=== PATIENT | male | born 1965 | race Caucasian/White ===

== ENCOUNTER 2020-08-10 06:35 | Emergency (ER) | payer BC ==
[~2020-08-10] VITALS: Ht 177.8 cm; Wt 78.9 kg
[~2020-08-10 06:35] MED LIST: AMOCLA875 PO; DOCU100 PO; FAMO20 PO; HYDHOMSY; MIRALAX17 GM PO; ONDA4ODT MM; Percocet 5-3251 EACH PO; Zofran Odt4 MG SL
[2020-08-10] MEDS ORDERED: Metoclopramide10 MG PO (06:50)
[2020-08-10] MEDS ORDERED: XARELTO20 M1 PO (06:50)
== END 2020-08-10 09:05 | disposition home or self-care (01) ==
LOC: ER 06:35
DX: R04.0 Epistaxis (principal); Z86.718 Personal history of other venous thrombosis and embolism; Z79.01 Long term (current) use of anticoagulants; Z79.899 Other long term (current) drug therapy
CPT/HCPCS: 99283

== ENCOUNTER 2021-01-06 03:44 | Emergency (ER) | payer BC ==
[~2021-01-06] VITALS: Ht 177.8 cm; Wt 74.8 kg
[~2021-01-06 03:44] MED LIST changes: +Metoclopramide10 MG PO; +XARELTO20 M1 PO
[2021-01-06 04:19] LABS: BASOPHILS ABSOLUTE AUTO 0.04 K/mm3 (0.00-0.23); BASOPHILS PERCENT AUTO 0 % (0-2); EOSINOPHILS ABSOLUTE AUTO 0.05 K/mm3 (0.00-0.68); EOSINOPHILS PERCENT AUTO 0 % (0-6); Hematocrit 31.8 % (37.0-53.0); Hemoglobin 9.1 g/dL (13.5-17.5); IMMATURE GRAN ABSOLUTE AUTO 0.25 K/mm3 (0.00-0.10); IMMATURE GRAN PERCENT AUTO 1 % (0-1); LYMPHOCYTES ABSOLUTE AUTO 2.15 K/mm3 (0.84-5.20); LYMPHOCYTES PERCENT AUTO 10 % (21-46); MONOCYTES ABSOLUTE AUTO 2.18 K/mm3 (0.16-1.47); MONOCYTES PERCENT AUTO 10 % (4-13); Mean Corpuscular HGB 24.3 pg (26.0-34.0); Mean Corpuscular HGB Conc 28.6 g/dL (31.5-36.5); Mean Corpuscular Volume 85 fL (80-100); Mean Platelet Volume 9.8 fL (9.1-12.4); NEUTROPHILS ABSOLUTE AUTO 17.75 K/mm3 (1.96-9.15); NEUTROPHILS PERCENT AUTO 79 % (41-73); Platelet Count 474 K/mm3 (150-400); RDW Coefficient Variation 18.2 % (11.7-14.2); RDW Standard Deviation 55.8 fL (35.1-46.3); Red Blood Cell Count 3.75 M/mm3 (4.30-5.90); White Blood Cell Count 22.42 K/mm3 (4.00-11.30)
[2021-01-06] MEDS ORDERED: Deltasone 10 mg10 MG PO (04:20)
[2021-01-06] MEDS ORDERED: DULCOLAX STOOL100 M2 PO (04:22)
[2021-01-06] MEDS ORDERED: OMEP20ER PO (04:22)
[2021-01-06 04:48] LABS: Alanine Aminotransfer (ALT/SGP 28 U/L (12-78); Albumin, Blood 2.6 g/dL (3.4-5.0); Albumin/Globulin Ratio 0.5 (0.8-1.8); Alk Phos 163 U/L (50-136); Anion Gap 8 mmol/L (6-16); Aspartate Aminotrans (AST/SGOT 49 U/L (12-37); Bilirubin, Total 0.4 mg/dL (0.1-1.0); Blood Urea Nitrogen 10 mg/dL (8-24); Bun/Creatinine Ratio 12.5 (12.0-20.0); CO2, Blood 29 mmol/L (21-32); Calcium, Blood 9.3 mg/dL (8.5-10.1); Chloride, Blood 100 mmol/L (98-108); Glomerular Filtration Rate >60 (60-); Glucose, Blood 117 mg/dL (70-99); Potassium, Blood 3.5 mmol/L (3.5-5.5); Sodium, Blood 137 mmol/L (136-145); Total Protein, Blood 7.6 g/dL (6.4-8.2)
[2021-01-06] MEDS ORDERED: MAGCIT300 PO (04:58)
[2021-06-12] MEDS ORDERED: MIRALAX17 GM PO (10:56)
[2021-06-12] MEDS ORDERED: SIME80CH PO (10:56)
[2021-06-12] MEDS ORDERED: DOCU100 PO (10:57)
[2021-06-13] MEDS ORDERED: GAS X (07:49)
[2021-06-13] MEDS ORDERED: OMEP20ER PO (07:50)
[2021-06-18] MEDS ORDERED: OXAYDO5 M1 PO (13:42)
== END 2021-01-06 05:07 | disposition home or self-care (01) ==
LOC: ER 03:44
PROVIDERS: Emergency Medicine
DX: K59.00 Constipation, unspecified (principal); Z79.01 Long term (current) use of anticoagulants; Z79.52 Long term (current) use of systemic steroids; Z79.899 Other long term (current) drug therapy
CPT/HCPCS: 36415; 74018; 80053; 83690; 85025; 96361; 96374; 96375; 99284-25; J1170; J2405; J7120

== ENCOUNTER 2021-02-01 13:36 | Inpatient (IN) | payer BC ==
[~2021-02-01] VITALS: Ht 177.8 cm; Wt 74.1 kg
[~2021-02-01 13:36] MED LIST changes: -ALPR.5 PO; -BENADRYL25 MG PO; -BISA10S; -GAS X; -OXAYDO5 M1 PO; -Oxycodone HCl20 M1; -SIME80CH PO
[2021-02-01 14:34] LABS: Mean Corpuscular HGB 25.3 pg (26.0-34.0); Mean Corpuscular HGB Conc 27.4 g/dL (31.5-36.5); Mean Corpuscular Volume 92 fL (80-100); Mean Platelet Volume 9.8 fL (9.1-12.4); NRBC ABSOLUTE 0.06 K/mm3 (0.00-0.02); NRBC Auto 0.5 /100 WBC (0.0-0.2); Platelet Count 374 K/mm3 (150-400); RDW Coefficient Variation 25.4 % (11.7-14.2); RDW Standard Deviation 74.4 fL (35.1-46.3); White Blood Cell Count 13.29 K/mm3 (4.00-11.30)
[2021-02-01 14:36] LABS: Hematocrit 17.5 % (37.0-53.0); Hemoglobin 4.8 g/dL (13.5-17.5)
[2021-02-01 14:54] LABS: Alanine Aminotransfer (ALT/SGP 17 U/L (12-78); Albumin, Blood 2.6 g/dL (3.4-5.0); Albumin/Globulin Ratio 0.6 (0.8-1.8); Alk Phos 124 U/L (50-136); Anion Gap 6 mmol/L (6-16); Aspartate Aminotrans (AST/SGOT 42 U/L (12-37); Bilirubin, Total 0.2 mg/dL (0.1-1.0); Blood Urea Nitrogen 13 mg/dL (8-24); Bun/Creatinine Ratio 14.1 (12.0-20.0); CO2, Blood 28 mmol/L (21-32); Calcium, Blood 8.4 mg/dL (8.5-10.1); Chloride, Blood 104 mmol/L (98-108); Creatinine, Blood 0.92 mg/dL (0.60-1.20); Globulin, Blood 4.1 g/dL (2.2-4.0); Glomerular Filtration Rate >60 (60-); Glucose, Blood 99 mg/dL (70-99); Potassium, Blood 4.3 mmol/L (3.5-5.5); Sodium, Blood 138 mmol/L (136-145); Total Protein, Blood 6.7 g/dL (6.4-8.2)
[2021-02-01 15:09] LABS: BAND PERCENT MAN 1 % (0-8); BASOPHILS ABSOLUTE MAN 0.13 K/mm3 (0.00-0.23); BASOPHILS PERCENT MAN 1 % (0-2); EOSINOPHILS PERCENT MAN 0 % (0-6); LYMPHOCYTES ABSOLUTE MAN 1.19 K/mm3 (0.84-5.20); LYMPHOCYTES PERCENT MAN 9 % (21-46); MONOCYTES ABSOLUTE MAN 0.66 K/mm3 (0.16-1.47); MONOCYTES PERCENT MAN 5 % (4-13); MYELOCYTE ABSOLUTE MAN 0.26 K/mm3 (0.00-0.00); MYELOCYTE PERCENT MAN 2 % (0-0); NEUTROPHILS ABSOLUTE MAN 11.03 K/mm3 (1.96-9.15); SEG NEUTROPHILS PERCENT MAN 82 % (41-73); TOTAL CELLS COUNTED 100
[2021-02-01 16:06] LABS: International Normalized Ratio 1.12; Prothrombin Time Results 11.9 Sec (9.7-11.5)
--- NOTE | 2021-02-01 18:45 | NUR ---
Arrival to unit Received report from [facility]ert ED-RN. Patient arrived approximately 1845 via gurney with 2nd PRBC infusing @ 150 mLs/hr. Transferred self over to bed. at bedside. Settled to room, call light in reach. Report handed to nanda Wesley.
[2021-02-01 23:59] LABS: Hematocrit 23.5 % (37.0-53.0); Hemoglobin 7.4 g/dL (13.5-17.5)
--- NOTE | 2021-02-02 04:42 | NUR ---
SHIFT SUMMARY ASSUMED CARE OF PT AT 1900. PT IS A/OX4. HEART SOUNDS REGULAR, LUNG SOUNDS CLEAR. PT C/O PAIN IN ABD RADIATING TO BACK, MEDICATED PER EMAR. PT IS NPO AT MIDNIGHT FOR SCOPE IN AFTERNOON. PT RECEIVED 3 UNITS OF BLOOD TOTAL, HGB IS MORE STABLE. PT STATES HE IS FEELING BETTER. PT WAS VERY TIRED AND SLEPT T/O THE NIGHT. CALL LIGHT IN REACH, BED IN LOWEST POSTION.
[2021-02-02 05:01] LABS: BASOPHILS ABSOLUTE AUTO 0.08 K/mm3 (0.00-0.23); BASOPHILS PERCENT AUTO 1 % (0-2); EOSINOPHILS ABSOLUTE AUTO 0.18 K/mm3 (0.00-0.68); EOSINOPHILS PERCENT AUTO 1 % (0-6); Hematocrit 24.3 % (37.0-53.0); Hemoglobin 7.6 g/dL (13.5-17.5); IMMATURE GRAN ABSOLUTE AUTO 0.63 K/mm3 (0.00-0.10); IMMATURE GRAN PERCENT AUTO 5 % (0-1); LYMPHOCYTES ABSOLUTE AUTO 1.91 K/mm3 (0.84-5.20); LYMPHOCYTES PERCENT AUTO 15 % (21-46); MONOCYTES ABSOLUTE AUTO 1.04 K/mm3 (0.16-1.47); MONOCYTES PERCENT AUTO 8 % (4-13); Mean Corpuscular HGB 27.4 pg (26.0-34.0); Mean Corpuscular HGB Conc 31.3 g/dL (31.5-36.5); Mean Corpuscular Volume 88 fL (80-100); Mean Platelet Volume 9.5 fL (9.1-12.4); NEUTROPHILS ABSOLUTE AUTO 8.93 K/mm3 (1.96-9.15); NEUTROPHILS PERCENT AUTO 70 % (41-73); NRBC ABSOLUTE 0.14 K/mm3 (0.00-0.02); NRBC Auto 1.1 /100 WBC (0.0-0.2); Platelet Count 355 K/mm3 (150-400); RDW Coefficient Variation 20.2 % (11.7-14.2); RDW Standard Deviation 55.4 fL (35.1-46.3); Red Blood Cell Count 2.77 M/mm3 (4.30-5.90); White Blood Cell Count 12.77 K/mm3 (4.00-11.30)
[2021-02-02 05:21] LABS: Anion Gap 5 mmol/L (6-16); Blood Urea Nitrogen 10 mg/dL (8-24); Bun/Creatinine Ratio 10.6 (12.0-20.0); CO2, Blood 29 mmol/L (21-32); Calcium, Blood 8.2 mg/dL (8.5-10.1); Chloride, Blood 106 mmol/L (98-108); Creatinine, Blood 0.94 mg/dL (0.60-1.20); Glomerular Filtration Rate >60 (60-); Glucose, Blood 84 mg/dL (70-99); Magnesium, Blood 2.2 mg/dL (1.6-2.4); Sodium, Blood 140 mmol/L (136-145)
--- NOTE | 2021-02-02 11:46 | NUR ---
MARÍA NEGRON RECEIVED T.O. FROM DR. ALEXANDER FOR IV ZOFRAN D/T NAUSEA R/T MINH. ORDER UPDATED.
[2021-02-02 11:57] LABS: Influenza A, PCR NEGATIVE (NEGATIVE); Influenza B, PCR NEGATIVE (NEGATIVE); Resp Syncytial Virus, PCR NEGATIVE (NEGATIVE); SARS-Cov-2 (COVID-19) PCR, MMC NEGATIVE (NEGATIVE)
--- NOTE | 2021-02-02 13:29 | NUR ---
2ND BOWEL PREP PATIENT HAD RECENT BOWEL MOVEMENT, WATERY BUT NOT COMPLETELY CLEAR (UNABLE TO SEE THROUGH TO THE BOTTOM OF TOILET). UPDATE CONVEYED TO DR. REYES. RECEIVED T.O. TO START SECOND GOLYTELY UNTIL BOWELS ARE CLEAR. WILL UPDATE EMAR.
--- NOTE | 2021-02-02 17:02 | NUR ---
Patient up to Ambulate independently. Gait steady. Patient states colon prep results clear. History, Chart, Medications and Allergies reviewed before start of procedure.Lungs clear T/O to Auscultation. Patient confirms NPO status and agrees with scheduled surgery. AT BEDSIDE.
[2021-02-02 17:10] LABS: Hematocrit 26.2 % (37.0-53.0)
--- NOTE | 2021-02-02 17:17 | NUR ---
Shift Summary A/Ox4, independent in room. Able to make needs known. Medicated per EMAR for pain x 2 with good effect. Finished approximately 1.5 gallon of bowel prep with good results. Scheduled for EGD and colonoscopy for which patient is currently at. Placed protocol order for heparin flush/deaccess for mediport. D5 1/ NS @ 125 continuous. Hgb @ 8 s/p 3 units PRBC transfused. Patient reports [facility] Also reports he was scheduled to receive a total of 10 iron infusions (Mondays and ) with 02/01/21 being the 4th dose completed. Breathing equal and unlabored. VSS. Denies dizziness, shortness of breath. Stools today had no visible blood. at bedside during visiting hours. No acute concerns, WCTM.
--- NOTE | 2021-02-02 17:38 | NUR ---
02/02/21 1738 Ovidio Bustamante PATIENT DETERMINED TO BE ASA APPROPRIATE FOR PROPOFOL SEDATION PRIOR TO START OF PROCEDURE BY DR. REYES. Bite Block Placed 3-LEAD EKG REVIEWED WITH PHYSICIAN PRIOR TO START OF PROCEDURE. Patient to ENDO 1 History, Chart, Medications and Allergies reviewed before start of procedure.MONITOR INTACT WITH CONTINUOUS PULSE OXIMETRY AND INTERMITTENT BP.O2 VIA N/C INTACT THROUGHOUT SEDATION/PROCEDURE.
--- NOTE | 2021-02-02 18:24 | NUR ---
ADMIT: 02/02/21 DISCHARGE: DX: Rectal BleedingCC: ADMIT: 07/04/20 DISCHARGE: DX: ABD PAIN CC LUCILA CALL: RESIDENCE: Home with spouse CAREGIVER: Yari Ny, Spouse / Partner, DX: abdominal pain, liver mass, anemia, see list DME: none CCM: none HOME HEALTH: none SUMMARY: Admit 02/01/21 02/02/21 Colonoscopy planned for today. Discharge to reflect results of scope. Left lucila letter in box for possible weekend discharge. cp 1: Anemia A/P: Hemoglobin noted to be 4.6-4.7 Etiology likely secondary to lower GI bleed in the setting of chemotherapy/immunotherapy-induced anemia We will begin transfusion with 3 units of packed red blood cells, recheck H&H afterwards Plan to check CBC in the morning and potentially trended H&H every 8 hours We will plan to transfuse to keep him globin greater than 7 2: Lower GI bleed A/P: Unknown etiology, differentials include hemorrhoids, angiodysplasias, malignancy in the setting of Xarelto use GI consult, will benefit from colonoscopy
--- NOTE | 2021-02-02 19:25 | NUR ---
ASSUMED CARE RECEIVED REPORT FROM GALLITO HO. PT RESTING COMFORTABLY, IN NO ACUTE DISTRESS. RESPS E/U. DENIES NEEDS AT THIS TIME. CALL LIGHT AND POSSESSIONS IN REACH, IVF ONGOING. CONTINUE TO MONITOR.
[2021-02-03 01:21] LABS: Hematocrit 23.5 % (37.0-53.0); Hemoglobin 7.3 g/dL (13.5-17.5)
--- NOTE | 2021-02-03 02:14 | NUR ---
SPOKE TO DR. MENESES REGARDING PT'S H&H OF 7.3/23.5. NO NEW ORDERS RECEIVED AT THIS TIME. CONTINUE TO MONITOR.
--- NOTE | 2021-02-03 07:16 | NUR ---
PLASTER WHITTLER SUMMARY PT RESTING COMFORTABLY, IN NO ACUTE DISTRESS. VS REVIEWED, WNL. NO ACUTE CHANGES IN CONDITION THROUGHOUT NIGHT, SLEPT ON AND OFF. PAIN MANAGED EFFECTIVELY WITH MEDS PER EMAR. NO REPORTS OF BLOODY STOOLS T/O NIGHT. DENIES NEEDS AT THIS TIME. CALL LIGHT AND POSSESSIONS IN REACH, BED IN LOW POSITION. REPORT GIVEN TO GALLITO TRAMMELL.
[2021-02-03 08:16] LABS: Hematocrit 25.4 % (37.0-53.0); Hemoglobin 7.7 g/dL (13.5-17.5)
--- NOTE | 2021-02-03 13:09 | NUR ---
DISCHARGE SUMMARY: PATIENT DENIED NEED FOR PAIN MEDICATION THROUGHOUT SHIFT. PATIENT DENIED ANY BLOOD IN STOOLS. PATIENT DENIED DIZZINESS OR FATIGUE. PATIENT DENIED ANY OF THE SYMPTOMS THAT BROUGHT HIM INTO THE HOSPITAL. PATIENT RESTING CALMLY IN THE BED. BREATHING IS EVEN AND REGULAR. PATIENT DENIES NAUSEA. PATIENT DOES REPORT SOME FEELINGS OF "BLOAT". DENIES NEED FOR INTERVENTION. PATIENT INDEPENDENT IN THE ROOM AND STEADY ON HIS FEET. ORDER FOR THE PATIENT TO DISCHARGE. NO NEW MEDICATIONS FOR DISCHARGE. PATIENT DENIES NEED FOR REFILLS. PATIENT REPORTS THAT HE WILL FOLLOW-UP WITH [facility] FOR FOLLOW-UP LAB DRAWS. DISCHARGE EDUCATION AND INSTRUCTIONS PROVIDED. ALL QUESTIONS AND CONCERNS ADDRESSED. PATIENT DISCHARGED IN WHEELCHAIR WITH ASSISTANT PRODUCTION MANAGERGALLITO FREEDMAN.
--- NOTE | 2021-02-05 18:04 | NUR ---
ADMIT: 02/02/21 DISCHARGE:02/03/21 DX: Rectal BleedingCC: ADMIT: 07/04/20 DISCHARGE: DX: ABD PAIN CC LUCILA CALL: Did not meet prior to disharge. RESIDENCE: Home with spouse CAREGIVER: Yari Ny, Spouse / Partner, DX: abdominal pain, liver mass, anemia, see list DME: none CCM: none HOME HEALTH: none SUMMARY: Admit 02/01/21 02/03/21 Discharge home. No instructions on discharge summary. Did not meet patient prior to discharge. cp 02/02/21 Colonoscopy planned for today. Discharge to reflect results of scope. Left lucila letter in box for possible weekend discharge. cp 1: Anemia
[2021-06-12] MEDS ORDERED: MIRALAX17 GM PO (10:56)
[2021-06-12] MEDS ORDERED: SIME80CH PO (10:56)
[2021-06-12] MEDS ORDERED: DOCU100 PO (10:57)
[2021-06-13] MEDS ORDERED: GAS X (07:49)
[2021-06-13] MEDS ORDERED: OMEP20ER PO (07:50)
[2021-06-18] MEDS ORDERED: OXAYDO5 M1 PO (13:42)
== END 2021-02-03 13:07 | disposition home or self-care (01) | DRG 375 ==
LOC: ER 13:36 → MEDS 16:47 → ER 16:47 → MEDS 18:46
PROVIDERS: Internal Medicine Gastroenterology; Physician Assistant; ADMIT Internal Medicine
PROC: 30233N1 Transfusion of Nonautologous Red Blood Cells into Peripheral Vein, Percutaneous Approach (ICD-10-PCS; 2021-02-02)
PROC: 0DJ08ZZ Inspection of Upper Intestinal Tract, Via Natural or Artificial Opening Endoscopic (ICD-10-PCS; principal; 2021-02-03)
PROC: 0DJD8ZZ Inspection of Lower Intestinal Tract, Via Natural or Artificial Opening Endoscopic (ICD-10-PCS; 2021-02-03)
DX: C18.5 Malignant neoplasm of splenic flexure (principal); D68.32 Hemorrhagic disorder due to extrinsic circulating anticoagulants; K92.2 Gastrointestinal hemorrhage, unspecified; C78.6 Secondary malignant neoplasm of retroperitoneum and peritoneum; C78.7 Secondary malignant neoplasm of liver and intrahepatic bile duct; D64.81 Anemia due to antineoplastic chemotherapy; K21.9 Gastro-esophageal reflux disease without esophagitis; Z86.718 Personal history of other venous thrombosis and embolism; T45.1X5A Adverse effect of antineoplastic and immunosuppressive drugs, initial encounter; D50.9 Iron deficiency anemia, unspecified; Z79.899 Other long term (current) drug therapy; Z98.890 Other specified postprocedural states; Z20.822 Contact with and (suspected) exposure to COVID-19
CPT/HCPCS: 0241U; 36415; 36430; 80048; 80053; 83735; 85014; 85018; 85025; 85610; 85730; 86850; 86900; 86901; 86920; 86923; 93005; 93010; 99284-25; A9270; J1170; J1642; J2270; J2405; J2704; J7030; J7042; J7120; P9016

== ENCOUNTER → 2021-02-01 | Outpatient (CLI) | payer BC ==
[~2021-02-01] MED LIST changes: +ALPR.5 PO; +BENADRYL25 MG PO; +BISA10S; +DULCOLAX STOOL100 M2 PO; +Deltasone 10 mg10 MG PO; +GAS X; +MAGCIT300 PO; +OMEP20ER PO; +OXAYDO5 M1 PO; +Oxycodone HCl20 M1; +SIME80CH PO
[2021-02-01 13:03] LABS: Alanine Aminotransfer (ALT/SGP 17 U/L (12-78); Albumin, Blood 2.7 g/dL (3.4-5.0); Albumin/Globulin Ratio 0.8 (0.8-1.8); Alk Phos 120 U/L (50-136); Anion Gap 6 mmol/L (6-16); Aspartate Aminotrans (AST/SGOT 40 U/L (12-37); Bilirubin, Total 0.3 mg/dL (0.1-1.0); Blood Urea Nitrogen 14 mg/dL (8-24); Bun/Creatinine Ratio 14.7 (12.0-20.0); CO2, Blood 27 mmol/L (21-32); Calcium, Blood 8.4 mg/dL (8.5-10.1); Chloride, Blood 106 mmol/L (98-108); Creatinine, Blood 0.95 mg/dL (0.60-1.20); Globulin, Blood 3.6 g/dL (2.2-4.0); Glomerular Filtration Rate >60 (60-); Glucose, Blood 99 mg/dL (70-99); Sodium, Blood 139 mmol/L (136-145); Total Protein, Blood 6.3 g/dL (6.4-8.2)
[2021-02-01 13:08] LABS: BASOPHILS ABSOLUTE AUTO 0.07 K/mm3 (0.00-0.23); BASOPHILS PERCENT AUTO 1 % (0-2); EOSINOPHILS PERCENT AUTO 1 % (0-6); IMMATURE GRAN ABSOLUTE AUTO 0.61 K/mm3 (0.00-0.10); IMMATURE GRAN PERCENT AUTO 5 % (0-1); LYMPHOCYTES PERCENT AUTO 11 % (21-46); MONOCYTES ABSOLUTE AUTO 0.71 K/mm3 (0.16-1.47); MONOCYTES PERCENT AUTO 6 % (4-13); Mean Corpuscular HGB 25.7 pg (26.0-34.0); Mean Corpuscular HGB Conc 28.1 g/dL (31.5-36.5); Mean Corpuscular Volume 91 fL (80-100); Mean Platelet Volume 10.2 fL (9.1-12.4); NEUTROPHILS ABSOLUTE AUTO 9.94 K/mm3 (1.96-9.15); NEUTROPHILS PERCENT AUTO 78 % (41-73); NRBC ABSOLUTE 0.08 K/mm3 (0.00-0.02); NRBC Auto 0.6 /100 WBC (0.0-0.2); Platelet Count 366 K/mm3 (150-400); RDW Coefficient Variation 24.8 % (11.7-14.2); RDW Standard Deviation 71.3 fL (35.1-46.3); Red Blood Cell Count 1.83 M/mm3 (4.30-5.90); White Blood Cell Count 12.83 K/mm3 (4.00-11.30)
[2021-02-01 13:10] LABS: Hematocrit 16.7 % (37.0-53.0); Hemoglobin 4.7 g/dL (13.5-17.5)
== END | disposition home or self-care (01) ==
LOC: LAB 12:12 → LAB SHORT 12:12
PROVIDERS: Internal Medicine Hematology & Oncology
DX: C18.9 Malignant neoplasm of colon, unspecified (principal)
CPT/HCPCS: 80053; 85025

== ENCOUNTER 2021-05-08 02:32 | Day surgery (SDC) | payer BC ==
[2021-05-07 11:44] LABS: BASOPHILS ABSOLUTE AUTO 0.05 K/mm3 (0.00-0.23); BASOPHILS PERCENT AUTO 1 % (0-2); EOSINOPHILS ABSOLUTE AUTO 0.08 K/mm3 (0.00-0.68); EOSINOPHILS PERCENT AUTO 1 % (0-6); Hematocrit 18.2 % (37.0-53.0); IMMATURE GRAN ABSOLUTE AUTO 0.11 K/mm3 (0.00-0.10); IMMATURE GRAN PERCENT AUTO 2 % (0-1); LYMPHOCYTES ABSOLUTE AUTO 1.66 K/mm3 (0.84-5.20); LYMPHOCYTES PERCENT AUTO 25 % (21-46); MONOCYTES ABSOLUTE AUTO 0.58 K/mm3 (0.16-1.47); MONOCYTES PERCENT AUTO 9 % (4-13); Mean Corpuscular HGB 24.8 pg (26.0-34.0); Mean Corpuscular HGB Conc 28.6 g/dL (31.5-36.5); Mean Corpuscular Volume 87 fL (80-100); Mean Platelet Volume 10.5 fL (9.1-12.4); NEUTROPHILS ABSOLUTE AUTO 4.21 K/mm3 (1.96-9.15); NEUTROPHILS PERCENT AUTO 63 % (41-73); NRBC ABSOLUTE 0.02 K/mm3 (0.00-0.02); NRBC Auto 0.3 /100 WBC (0.0-0.2); Platelet Count 284 K/mm3 (150-400); RDW Coefficient Variation 18.7 % (11.7-14.2); RDW Standard Deviation 59.2 fL (35.1-46.3); White Blood Cell Count 6.69 K/mm3 (4.00-11.30)
[2021-05-07 11:52] LABS: Albumin/Globulin Ratio 0.9 (0.8-1.8); Bilirubin, Total 0.2 mg/dL (0.1-1.0); Bun/Creatinine Ratio 10.3 (12.0-20.0); Calcium, Blood 8.3 mg/dL (8.5-10.1); Creatinine, Blood 1.36 mg/dL (0.60-1.20); Globulin, Blood 3.4 g/dL (2.2-4.0); Hemoglobin 5.2 g/dL (13.5-17.5); Percent Saturation 4.4 % (20.0-50.0); Potassium, Blood 3.7 mmol/L (3.5-5.5); Total Protein, Blood 6.4 g/dL (6.4-8.2)
[2021-06-12] MEDS ORDERED: MIRALAX17 GM PO (10:56)
[2021-06-12] MEDS ORDERED: SIME80CH PO (10:56)
[2021-06-12] MEDS ORDERED: DOCU100 PO (10:57)
[2021-06-13] MEDS ORDERED: GAS X (07:49)
[2021-06-13] MEDS ORDERED: OMEP20ER PO (07:50)
[2021-06-18] MEDS ORDERED: OXAYDO5 M1 PO (13:42)
== END 2021-05-08 11:25 | disposition home or self-care (01) ==
LOC: ATC 02:32 → EDSTATUS 04-17 10:45 → LAB FUT 04-17 10:45
PROVIDERS: Internal Medicine Hematology & Oncology
DX: C18.5 Malignant neoplasm of splenic flexure (principal); C78.7 Secondary malignant neoplasm of liver and intrahepatic bile duct; K21.9 Gastro-esophageal reflux disease without esophagitis; Z86.718 Personal history of other venous thrombosis and embolism; Z79.01 Long term (current) use of anticoagulants; G62.9 Polyneuropathy, unspecified; Z87.440 Personal history of urinary (tract) infections; Z92.21 Personal history of antineoplastic chemotherapy
CPT/HCPCS: 36415; 36430; 80053; 82728; 83540; 83550; 85025; 86850; 86900; 86901; 86923; J1642; J7050; P9016

== ENCOUNTER 2021-05-15 08:33 | Day surgery (SDC) | payer BC ==
[~2021-05-15] VITALS: Ht 177.8 cm; Wt 83.4 kg
[2021-05-15] MEDS ORDERED: Oxycodone HCl20 M1 (08:50)
[2021-05-15] MEDS ORDERED: ALPR.5 PO (08:51)
[2021-05-15] MEDS ORDERED: BENADRYL25 MG PO (08:51)
[2021-05-15] MEDS ORDERED: BISA10S (08:51)
[2021-06-12] MEDS ORDERED: MIRALAX17 GM PO (10:56)
[2021-06-12] MEDS ORDERED: SIME80CH PO (10:56)
[2021-06-12] MEDS ORDERED: DOCU100 PO (10:57)
[2021-06-13] MEDS ORDERED: GAS X (07:49)
[2021-06-13] MEDS ORDERED: OMEP20ER PO (07:50)
[2021-06-18] MEDS ORDERED: OXAYDO5 M1 PO (13:42)
== END 2021-05-15 10:30 | disposition home or self-care (01) ==
LOC: ORSCSDS 08:33
PROVIDERS: Internal Medicine Gastroenterology
PROC: 0DJ08ZZ Inspection of Upper Intestinal Tract, Via Natural or Artificial Opening Endoscopic (ICD-10-PCS; principal; 2021-05-15 10:00)
DX: K92.1 Melena (principal); R53.83 Other fatigue; D50.9 Iron deficiency anemia, unspecified; Z85.038 Personal history of other malignant neoplasm of large intestine; Z79.01 Long term (current) use of anticoagulants; Z79.899 Other long term (current) drug therapy
CPT/HCPCS: J2704; J7120

== ENCOUNTER 2021-05-16 06:12 | Day surgery (SDC) | payer BC ==
[~2021-05-16] VITALS: Ht 177.8 cm; Wt 83.4 kg
[~2021-05-16 06:12] MED LIST changes: +ALPR.5 PO; +BENADRYL25 MG PO; +BISA10S; +Oxycodone HCl20 M1
--- NOTE | 2021-05-16 06:40 | NUR ---
05/16/21 0640 Crystal Smith 1 TRY RIGHT UPPER ARM MOVED
[2021-06-12] MEDS ORDERED: MIRALAX17 GM PO (10:56)
[2021-06-12] MEDS ORDERED: SIME80CH PO (10:56)
[2021-06-12] MEDS ORDERED: DOCU100 PO (10:57)
[2021-06-13] MEDS ORDERED: GAS X (07:49)
[2021-06-13] MEDS ORDERED: OMEP20ER PO (07:50)
[2021-06-18] MEDS ORDERED: OXAYDO5 M1 PO (13:42)
== END 2021-05-16 08:06 | disposition home or self-care (01) ==
LOC: ORSCSDS 06:12
PROVIDERS: Internal Medicine Gastroenterology
PROC: 0DJ08ZZ Inspection of Upper Intestinal Tract, Via Natural or Artificial Opening Endoscopic (ICD-10-PCS; principal; 2021-05-16 07:30)
DX: K92.1 Melena (principal); K92.2 Gastrointestinal hemorrhage, unspecified; D50.9 Iron deficiency anemia, unspecified; Z85.038 Personal history of other malignant neoplasm of large intestine
CPT/HCPCS: J0330; J0461; J2405; J2704; J7120

== ENCOUNTER 2021-05-18 09:28 | Day surgery (SDC) | payer BC ==
[2021-05-17 10:11] LABS: BASOPHILS ABSOLUTE AUTO 0.05 K/mm3 (0.00-0.23); BASOPHILS PERCENT AUTO 1 % (0-2); EOSINOPHILS ABSOLUTE AUTO 0.15 K/mm3 (0.00-0.68); EOSINOPHILS PERCENT AUTO 2 % (0-6); Hematocrit 21.4 % (37.0-53.0); IMMATURE GRAN ABSOLUTE AUTO 0.07 K/mm3 (0.00-0.10); IMMATURE GRAN PERCENT AUTO 1 % (0-1); LYMPHOCYTES ABSOLUTE AUTO 2.27 K/mm3 (0.84-5.20); LYMPHOCYTES PERCENT AUTO 30 % (21-46); MONOCYTES PERCENT AUTO 8 % (4-13); Mean Corpuscular HGB 24.9 pg (26.0-34.0); Mean Corpuscular Volume 89 fL (80-100); Mean Platelet Volume 10.1 fL (9.1-12.4); NEUTROPHILS ABSOLUTE AUTO 4.43 K/mm3 (1.96-9.15); NEUTROPHILS PERCENT AUTO 59 % (41-73); Platelet Count 388 K/mm3 (150-400); RDW Coefficient Variation 18.4 % (11.7-14.2); RDW Standard Deviation 59.1 fL (35.1-46.3); Red Blood Cell Count 2.41 M/mm3 (4.30-5.90); White Blood Cell Count 7.57 K/mm3 (4.00-11.30)
[2021-06-12] MEDS ORDERED: SIME80CH PO (10:56)
[2021-06-12] MEDS ORDERED: MIRALAX17 GM PO (10:56)
[2021-06-12] MEDS ORDERED: DOCU100 PO (10:57)
[2021-06-13] MEDS ORDERED: GAS X (07:49)
[2021-06-13] MEDS ORDERED: OMEP20ER PO (07:50)
[2021-06-18] MEDS ORDERED: OXAYDO5 M1 PO (13:42)
== END 2021-05-18 17:09 | disposition home or self-care (01) ==
LOC: ATC 09:28 → LAB FUT 05-16 14:00 → EDSTATUS 05-16 14:00
PROVIDERS: Internal Medicine Hematology & Oncology
DX: C18.5 Malignant neoplasm of splenic flexure (principal); C78.7 Secondary malignant neoplasm of liver and intrahepatic bile duct; Z79.01 Long term (current) use of anticoagulants; K21.9 Gastro-esophageal reflux disease without esophagitis
CPT/HCPCS: 36415; 36430; 85025; 86850; 86900; 86901; 86923; J1642; J7050; P9016

== ENCOUNTER 2021-06-01 10:04 | Day surgery (SDC) | payer BC ==
--- NOTE | 2021-06-01 10:25 | NUR ---
PT ARRIVED TO THE ROOM. PT ALERT AND ORIENTED. VSS. DR. JESSICA SOLIMAN' OFFICE CONTACTED FOR ORDER TO ACCESS Phone Warrior. AWAITING THAT ORDER. WILL CONTINUE TO MONITOR.
--- NOTE | 2021-06-01 11:00 | NUR ---
ArchsyJIM ACCESSED PER ORDER. PT TOLERATED WELL.
--- NOTE | 2021-06-01 13:28 | NUR ---
PT RESTING IN BED. APPEARS TO BE TOLERATING FIRST UNIT OF BLOOD WELL.
--- NOTE | 2021-06-01 14:05 | NUR ---
PT COMPLETED 1U O NEG PRBC. PT HAS BEEN ALERT AND ORIENTED X 3 THROUGHOUT INFUSION. VITAL SIGNS STABLE Q HOUR THROUGHOUT INFUSION. LUNG SOUNDS AUSCULTATED CLEAR IN ALL LOBES UPON INFUSION COMPLETION. DENIES SOB/CP.
--- NOTE | 2021-06-01 18:05 | NUR ---
AYLIN DEACCESSED. WNL. SITE ASSESS AFTER DEACCESS AND WNL.
--- NOTE | 2021-06-01 18:08 | NUR ---
DISCHARGE PT DISCHARGED AT 1745 AFTER SUBCUTANEOUS PORT DEACCESSED. VSS. PT ABLE TO AMBULATE OUT WITHOUT ASSISTANCE.
[2021-06-12] MEDS ORDERED: SIME80CH PO (10:56)
[2021-06-12] MEDS ORDERED: MIRALAX17 GM PO ×2 (10:56)
[2021-06-12] MEDS ORDERED: DOCU100 PO (10:57)
== END 2021-06-01 17:50 | disposition home or self-care (01) ==
LOC: TRN 10:04 → SURS 10:05 → TRN 17:50 → EDSTATUS 06-14 13:54
PROC: 30233N1 Transfusion of Nonautologous Red Blood Cells into Peripheral Vein, Percutaneous Approach (ICD-10-PCS; principal; 2021-06-01)
DX: C18.5 Malignant neoplasm of splenic flexure (principal); C78.7 Secondary malignant neoplasm of liver and intrahepatic bile duct; D63.0 Anemia in neoplastic disease; G89.3 Neoplasm related pain (acute) (chronic); K21.9 Gastro-esophageal reflux disease without esophagitis; F41.9 Anxiety disorder, unspecified; G62.9 Polyneuropathy, unspecified; Z92.21 Personal history of antineoplastic chemotherapy
CPT/HCPCS: 36415; 36430; 80053; 82378; 85025; 86850; 86900; 86901; 86923; J1642; P9016

== ENCOUNTER 2021-06-08 00:27 | Day surgery (SDC) | payer BC ==
[2021-06-07 13:58] LABS: BASOPHILS ABSOLUTE AUTO 0.07 K/mm3 (0.00-0.23); BASOPHILS PERCENT AUTO 1 % (0-2); EOSINOPHILS ABSOLUTE AUTO 0.05 K/mm3 (0.00-0.68); EOSINOPHILS PERCENT AUTO 1 % (0-6); Hematocrit 23.2 % (37.0-53.0); Hemoglobin 6.8 g/dL (13.5-17.5); IMMATURE GRAN ABSOLUTE AUTO 0.13 K/mm3 (0.00-0.10); IMMATURE GRAN PERCENT AUTO 1 % (0-1); LYMPHOCYTES ABSOLUTE AUTO 1.29 K/mm3 (0.84-5.20); LYMPHOCYTES PERCENT AUTO 14 % (21-46); MONOCYTES ABSOLUTE AUTO 0.46 K/mm3 (0.16-1.47); MONOCYTES PERCENT AUTO 5 % (4-13); Mean Corpuscular HGB 25.7 pg (26.0-34.0); Mean Corpuscular HGB Conc 29.3 g/dL (31.5-36.5); Mean Corpuscular Volume 88 fL (80-100); Mean Platelet Volume 10.2 fL (9.1-12.4); NEUTROPHILS ABSOLUTE AUTO 6.99 K/mm3 (1.96-9.15); NEUTROPHILS PERCENT AUTO 78 % (41-73); Platelet Count 344 K/mm3 (150-400); RDW Coefficient Variation 18.6 % (11.7-14.2); RDW Standard Deviation 60.1 fL (35.1-46.3); Red Blood Cell Count 2.65 M/mm3 (4.30-5.90); White Blood Cell Count 8.99 K/mm3 (4.00-11.30)
[2021-06-12] MEDS ORDERED: SIME80CH PO (10:56)
[2021-06-12] MEDS ORDERED: MIRALAX17 GM PO (10:56)
[2021-06-12] MEDS ORDERED: DOCU100 PO (10:57)
== END 2021-06-08 10:46 | disposition home or self-care (01) ==
LOC: ATC 00:27 → LAB FUT 05-07 13:50 → EDSTATUS 05-07 13:50
PROVIDERS: Internal Medicine Hematology & Oncology
DX: C18.5 Malignant neoplasm of splenic flexure (principal); C78.7 Secondary malignant neoplasm of liver and intrahepatic bile duct; D63.0 Anemia in neoplastic disease; D50.0 Iron deficiency anemia secondary to blood loss (chronic); K21.9 Gastro-esophageal reflux disease without esophagitis; Z79.01 Long term (current) use of anticoagulants; Z92.21 Personal history of antineoplastic chemotherapy; Z86.718 Personal history of other venous thrombosis and embolism; Z87.440 Personal history of urinary (tract) infections
CPT/HCPCS: 36415; 36430; 85025; 86850; 86900; 86901; 86923; J1642; J7050; P9016

== ENCOUNTER 2021-06-13 06:58 | Inpatient (IN) | payer BC ==
[~2021-06-13] VITALS: Ht 177.8 cm; Wt 84.1 kg
[~2021-06-13 06:58] MED LIST changes: +SIME80CH PO
[2021-06-13] MEDS ORDERED: GAS X ×2 (07:49)
[2021-06-13] MEDS ORDERED: OMEP20ER PO ×2 (07:50)
[2021-06-13 15:27] LABS: Hematocrit 23.9 % (37.0-53.0); Hemoglobin 7.3 g/dL (13.5-17.5)
--- NOTE | 2021-06-13 16:00 | NUR ---
pt transferred to room on own bed, drowsy but awakens to verbal stimuli, a/o x 4, in room with pt. epidural in place but not connected per md orders r/t decreased BP; called for orders from aneshtesia, which state to connect and start infusion at 1930. pt tolerating sips of water with no nausea. large liquid bm. midline incision with YOVANNY c/d/i with dime sized shadowing, compressed. post op vs commenced and stable.
--- NOTE | 2021-06-13 18:34 | NUR ---
dr howard alexandra on pt approx 1730 pt reports pain at 10/10 in abdoment; called dr mays for amended orders to start epidural infusion,which were given. infusion began 1819. last bp 133/65, vss
[2021-06-14 04:52] LABS: BASOPHILS ABSOLUTE AUTO 0.02 K/mm3 (0.00-0.23); BASOPHILS PERCENT AUTO 0 % (0-2); EOSINOPHILS PERCENT AUTO 0 % (0-6); Hematocrit 25.6 % (37.0-53.0); IMMATURE GRAN PERCENT AUTO 1 % (0-1); LYMPHOCYTES ABSOLUTE AUTO 1.43 K/mm3 (0.84-5.20); LYMPHOCYTES PERCENT AUTO 9 % (21-46); MONOCYTES ABSOLUTE AUTO 1.17 K/mm3 (0.16-1.47); MONOCYTES PERCENT AUTO 7 % (4-13); Mean Corpuscular HGB 27.6 pg (26.0-34.0); Mean Corpuscular HGB Conc 31.3 g/dL (31.5-36.5); Mean Corpuscular Volume 88 fL (80-100); Mean Platelet Volume 10.5 fL (9.1-12.4); NEUTROPHILS ABSOLUTE AUTO 13.22 K/mm3 (1.96-9.15); NEUTROPHILS PERCENT AUTO 83 % (41-73); NRBC ABSOLUTE 0.02 K/mm3 (0.00-0.02); NRBC Auto 0.1 /100 WBC (0.0-0.2); Platelet Count 329 K/mm3 (150-400); RDW Coefficient Variation 17.2 % (11.7-14.2); RDW Standard Deviation 54.7 fL (35.1-46.3); White Blood Cell Count 15.94 K/mm3 (4.00-11.30)
--- NOTE | 2021-06-14 05:15 | NUR ---
SHIFT SUMMARY POD1 PEMA COLECTOMY (NO OSTOMY), A/O X4, VSS, EPIDURAL IN PLACE, PT REPORTING HIGH LEVELS OF PAIN AT THE START OF THE SHIFT, ANESTHESIOLOGIST CONTACTED AND ADJUSTMENTS MADE PER ORDER AND PAIN IS SIGNIFICANTLY BETTER MANAGED NOW, PT NOW REPORTING PAIN DOWN TO A 1 TO 2 ON 0-10 PAIN SCALE. PT C/O HICCUPS TO THE POINT OF CAUSING NAUSEA, ZOFRAN GIVEN FOR NAUSEA, PT REPORTS DOING BETTER NOW BUT WILL SUGGEST DAY RN TO DISCUSS HAVING SOMETHING ON ORDER INCASE THEY RETURN, MARIA IN PLACE DRAINING WELL TO GRAVITY, PT SHOWING CONSISTENT AREA OF SENSATION STARTING AROUND THE DIAPHRAGM c NO TACTILE SENSATION BELOW THAT LINE OTHER THAN PRESSURE, COLD SENSATION AT THE SAME AREA TACTILE SENSATION. NO ACUTE EVENTS THIS SHIFT. CALL LIGHT IN REACH, WILL CTM AND REPORT TO ONCOMING DAY RN.
[2021-06-14 05:16] LABS: Bun/Creatinine Ratio 12.1 (12.0-20.0); Creatinine, Blood 1.4 mg/dL (0.60-1.20); Potassium, Blood 3.5 mmol/L (3.5-5.5)
--- NOTE | 2021-06-14 07:48 | NUR ---
0655- recvd report from previous shift RN Oleg, pt sleeping in bed, bed in lowest position, bed rails up x 2, call light within reach, denies n/v, rates pain at 01/10 0700-epidural assessment completed wnl, 0740-pt has hiccups, asked to "speak to someone" about them, this RN called Dr Quinones who movement/standing/oob, pt educated and respositioned, will stand/up in chair with NUCLEAR CHEMISTRY TECHNICIAN
--- NOTE | 2021-06-14 14:45 | NUR ---
ASSUMED CARE OF PATIENT. PT REPORTS NAUSEA MEDICATED WITH ZOFRAN. PT STATES CONTINUES TO HAVE HICCUPS, REPORTS PAIN IS ADEQUATELY CONTROLLED
--- NOTE | 2021-06-14 18:09 | NUR ---
PT REPORTS PAIN CONTROLLED AT 2/10, DECREASED SENSATION T7-T8 MOVEMENT AND SENSATION INTACT TO BLE.YOVANNY IN PLACE TO ABD. DR ANDRADE NOTIFIED OF OUTPUT OF 175 ML URINE FOR THIS SHIFT, NO NEW ORDERS. PT WITH PERIODS OF HICCUPS. PT DROWSY, AWAKENS TO VERBAL STIMULI. EPIDURAL IN PLACE
--- NOTE | 2021-06-15 06:05 | NUR ---
SHIFT SUMMARY POD2 PEMA COLLECTOMY, A/O X4, VSS, PT REMAINS NUMB TO BOTH TACTILE AND COLD SENSATION FROM T8 DOWN, REPORTS PAIN T/O THE SHIFT AT 1 OR 2 OUT OF 10 BUT STATES THIS INCREASES WHEN HE HAS THE HICCUPS TO A 4 OR 5 OUT OF 10. ATTEMPTED REGLAN TO RELIEVE HICCUPS BUT PT REPORTS STILL HAVING THEM. NO ACUTE EVENTS THIS SHIFT. CALL LIGHT IN REACH, WILL CTM AND REPORT TO ONCOMING DAY RN.
--- NOTE | 2021-06-15 12:04 | NUR ---
DR DUNN IN TO SEE PT.
--- NOTE | 2021-06-15 15:14 | NUR ---
DR ANDRADE IN TO SEE PT.
--- NOTE | 2021-06-15 19:35 | NUR ---
SUMMARY NO ACUTE CHANGES T/0 SHIFT. PT'S SENSATION DECREASED FROM T8 DOWN T/O SHIFT. LEGS WEAK. DID STAND AND TOOK FEW STEPS TO CHAIR. SAT IN RECLINER FOR SEVERAL HOURS. ADVANCED TO FULL LIQUIDS FOR DINNER. PT ATE SMALL AMOUNT AND REPORTED SETTLED WELL. PLAN TO DC EPIDURAL TOMORROW. CALL LIGHT AND EPIDURAL HOT PRESS OPERATOR BUTTON WITHIN REACH. REPORTED OFF TO NOC SHIFT.
--- NOTE | 2021-06-16 04:39 | NUR ---
SHIFT SUMMARY NO ACUTE CHANGES THIS SHIFT. VSS. PT REPORTS EPIDURAL MANAGING PAIN. DERMATOMES FROM MID ABD TO MID THIGH. IV CLINIMIX + LIPIDS PER ORDERS. PT DENIES PASSING GAS. BTS HYPOACTIVE. MARIA PATENT AND DRAINING. YOVANNY TO MIDLINE ABD REMAINS CDI AND COMPRESSED. PT REPORTS DECREASED HICCUPS THIS SHIFT. PLAN FOR EPIDURAL TO BE REMOVED TODAY. USES CALL LIGHT APPROPRIATELY.
--- NOTE | 2021-06-16 10:03 | NUR ---
EPIDERAL: ANESTHESIA IN TO DC EPIDERAL. PT JUDE WELL. LOVENOX ON HOLD. PT GIVEN TORADOL. PT UNABLE TO TAKE NORCO R/T ACETAMINOPHEN. WILL DISCUSS WITH MD DURING ROUNDS.
--- NOTE | 2021-06-16 18:35 | NUR ---
PT HAS BEEN STABLE THIS SHIFT. PT UP TO CHAIR THIS SHIFT WITH MIN ASSIST. SHOWERED WITH HELP OF SPOUSE. PT AMBULATED HALLWAY X1. PT JUDE SMALL AMTS FULL LIQUID DIET. NO NAUSEA. NO FLATUS YET. CONT CLINIMIX AND LIPIDS. MARIA DC'D AT 1600, NO VOID YET. PT EPIDERAL DC'D, PAIN MANAGED WITH PRN MEDS. YOVANNY DRESSING CDI. PT CALLS APPROPRIATELY NEEDED.
--- NOTE | 2021-06-16 18:45 | NUR ---
RECVD REPORT FROM PREVIOUS SHIFT RN SULLY, PT AWAKE IN BED, DRESSED IN HIS OWN CLOTHING, LIPIDS/CLINIMIX INFUSING, DENIES N/V, RATES PAIN AT 3/10, ACCEPTABLE PER PT. CALL LIGHT WITHIN REACH, BED IN LOWEST POSITION, BED RAILS UP X 2.
--- NOTE | 2021-06-16 19:29 | NUR ---
PT AMBULATED IN HALLWAY. REPORTS UNMEASURED VOID, EDUCATED PT TO KEEP URINAL AND REPORT TO RN'S, WHICH HE SAYS HE WILL DO.
--- NOTE | 2021-06-17 04:00 | NUR ---
shift summary: vss, no acute changes, pt remained a/o x 4, ambulated in hallway x 3 this shift. pt has c/o acid reflux, medicated per mar with moderate success per pt. pt denies n/v. pt rates pain at 5-7/10 prior to medicating per mar, reassessments range from 3-5/10. BM this shift, pt voiding this shift. pt tolerating small amount of full liquids, but reports his appetite has been decreased for some time per disease process. midline YOVANNY c/d/i with a dime sized dried shadow, compressed. pt pleasant/cooperative.
--- NOTE | 2021-06-17 05:03 | NUR ---
REPORT RECEIVED AT 0400. NO ACUTE CHANGES. OXYCODONE GIVEN FOR PAIN W/ GOOD EFFET. PT SLEEPING, USING CALL LIGHT TO MAKE NEEDS KNOWN.
--- NOTE | 2021-06-17 13:29 | NUR ---
DRESSING TO ABD CHANGED FROM YOVANNY TO MEDIPORE PER DR ANDRADE. CLINIMIX AND LIPIDS DC'D PER ORDER.
--- NOTE | 2021-06-17 16:45 | NUR ---
SHIFT SUMMARY PT IS A/O X4, IND IN HALLWAY. PT HAS AMBULATED IN HALLWAY WITH TODAY. TOLERATING FULL LIQUIDS; WILL ADVANCE TO REG DIET FOR DINNER. NO N/V TODAY. PT REPORTS 2 BM'S SO FAR THIS SHIFT. YOVANNY REPLACED WITH MEDIPORE DRESSING TODAY. CLINIMIX AND LIPIDS DC'D THIS SHIFT. PT RESTING IN ROOM AT THIS TIME, AT BEDSIDE.
--- NOTE | 2021-06-18 03:27 | NUR ---
SHIFT SUMMARY A/OX4, IND IN ROOM. PT REPORTS PASSING FLATUS AND BM THIS SHIFT. MIDLINE YOVANNY C/D/I. MEDICATED FOR PAIN PER EMAR. VSS, NO ACUTE CHANGES AT THIS TIME. BED IN LOWEST POSITION WITH CALL LIGHT IN REACH. WILL CONTINUE TO MONITOR AND REPORT TO ONCOMING RN.
[2021-06-18 04:43] LABS: BASOPHILS ABSOLUTE AUTO 0.01 K/mm3 (0.00-0.23); BASOPHILS PERCENT AUTO 0 % (0-2); EOSINOPHILS ABSOLUTE AUTO 0.03 K/mm3 (0.00-0.68); EOSINOPHILS PERCENT AUTO 0 % (0-6); Hematocrit 22.1 % (37.0-53.0); Hemoglobin 6.6 g/dL (13.5-17.5); IMMATURE GRAN ABSOLUTE AUTO 0.07 K/mm3 (0.00-0.10); IMMATURE GRAN PERCENT AUTO 1 % (0-1); LYMPHOCYTES ABSOLUTE AUTO 1.13 K/mm3 (0.84-5.20); LYMPHOCYTES PERCENT AUTO 13 % (21-46); MONOCYTES PERCENT AUTO 8 % (4-13); Mean Corpuscular HGB 26.7 pg (26.0-34.0); Mean Corpuscular HGB Conc 29.9 g/dL (31.5-36.5); Mean Corpuscular Volume 90 fL (80-100); Mean Platelet Volume 10.2 fL (9.1-12.4); NEUTROPHILS ABSOLUTE AUTO 6.47 K/mm3 (1.96-9.15); NEUTROPHILS PERCENT AUTO 77 % (41-73); Platelet Count 268 K/mm3 (150-400); RDW Coefficient Variation 17.4 % (11.7-14.2); RDW Standard Deviation 57.6 fL (35.1-46.3); Red Blood Cell Count 2.47 M/mm3 (4.30-5.90); White Blood Cell Count 8.41 K/mm3 (4.00-11.30)
[2021-06-18 05:04] LABS: Anion Gap 4 mmol/L (6-16); Blood Urea Nitrogen 12 mg/dL (8-24); Bun/Creatinine Ratio 10.4 (12.0-20.0); CO2, Blood 29 mmol/L (21-32); Calcium, Blood 8.7 mg/dL (8.5-10.1); Chloride, Blood 107 mmol/L (98-108); Creatinine, Blood 1.15 mg/dL (0.60-1.20); Glomerular Filtration Rate >60 (60-); Glucose, Blood 107 mg/dL (70-99); Potassium, Blood 3.7 mmol/L (3.5-5.5); Sodium, Blood 140 mmol/L (136-145)
--- NOTE | 2021-06-18 05:20 | NUR ---
PHYSICIAN NOTIFY SIMONIZER PROVIDER NOTIFIED OF HGB 6.6 ON AM LABS. NEW ORDER TO TRANSFUSE 1 UNIT.
[2021-06-18] MEDS ORDERED: OXAYDO5 M1 PO ×2 (13:42)
--- NOTE | 2021-06-18 14:08 | NUR ---
DR ANDRADE IN TO SEE PT. ORDERS TO DC OBTAINED.
--- NOTE | 2021-06-18 14:51 | NUR ---
DISCHARGED DC'D IVS, CATHETERS INTACT. PROVIDED DRESSING CHANGES. REVIEWED DC PAPERWORK; PT AND SPOUSE VERBALIZED UNDERSTANDING. PT LEAVING UNIT IN WC W/POSSESSIONS AND DC PAPERWORK IN HAND TO SPOUSE/RIDE WAITING OUTSIDE.
== END 2021-06-18 14:52 | disposition home or self-care (01) | DRG 330 ==
LOC: SURS 06:58 → PRE IP 08:30 → SURS 15:46
PROVIDERS: ADMIT Surgery
PROC: 0DBM0ZZ Excision of Descending Colon, Open Approach (ICD-10-PCS; 2021-06-13)
PROC: 0DTF0ZZ Resection of Right Large Intestine, Open Approach (ICD-10-PCS; principal; 2021-06-13 08:30)
PROC: 30233N1 Transfusion of Nonautologous Red Blood Cells into Peripheral Vein, Percutaneous Approach (ICD-10-PCS; 2021-06-18)
DX: C18.5 Malignant neoplasm of splenic flexure (principal); C78.7 Secondary malignant neoplasm of liver and intrahepatic bile duct; C78.6 Secondary malignant neoplasm of retroperitoneum and peritoneum; I82.5Y2 Chronic embolism and thrombosis of unspecified deep veins of left proximal lower extremity; K92.2 Gastrointestinal hemorrhage, unspecified; G62.9 Polyneuropathy, unspecified; K21.9 Gastro-esophageal reflux disease without esophagitis; F41.1 Generalized anxiety disorder; R06.6 Hiccough; D63.0 Anemia in neoplastic disease; G89.3 Neoplasm related pain (acute) (chronic); Z79.01 Long term (current) use of anticoagulants; Z87.19 Personal history of other diseases of the digestive system; Z95.828 Presence of other vascular implants and grafts; Z98.890 Other specified postprocedural states; Z79.899 Other long term (current) drug therapy; Z79.52 Long term (current) use of systemic steroids; Z92.21 Personal history of antineoplastic chemotherapy
CPT/HCPCS: 36415; 80048; 85014; 85018; 85025; 86850; 86900; 86901; 86923; 88309; 94760; 94762; A9270; J0295; J1100; J1650; J1885; J2060; J2250; J2270; J2370; J2405; J2704; J2765; J3010; J7120; J7512; P9016

== ENCOUNTER 2021-07-20 00:29 | Day surgery (SDC) | payer BC ==
[2021-07-17 10:17] LABS: BASOPHILS ABSOLUTE AUTO 0.02 K/mm3 (0.00-0.23); BASOPHILS PERCENT AUTO 0 % (0-2); EOSINOPHILS ABSOLUTE AUTO 0.16 K/mm3 (0.00-0.68); EOSINOPHILS PERCENT AUTO 3 % (0-6); Hematocrit 22.9 % (37.0-53.0); Hemoglobin 6.7 g/dL (13.5-17.5); IMMATURE GRAN ABSOLUTE AUTO 0.08 K/mm3 (0.00-0.10); IMMATURE GRAN PERCENT AUTO 1 % (0-1); LYMPHOCYTES ABSOLUTE AUTO 1.54 K/mm3 (0.84-5.20); LYMPHOCYTES PERCENT AUTO 24 % (21-46); MONOCYTES ABSOLUTE AUTO 0.22 K/mm3 (0.16-1.47); MONOCYTES PERCENT AUTO 3 % (4-13); Mean Corpuscular HGB 25.2 pg (26.0-34.0); Mean Corpuscular HGB Conc 29.3 g/dL (31.5-36.5); Mean Corpuscular Volume 86 fL (80-100); Mean Platelet Volume 9.3 fL (9.1-12.4); NEUTROPHILS ABSOLUTE AUTO 4.41 K/mm3 (1.96-9.15); NEUTROPHILS PERCENT AUTO 69 % (41-73); NRBC ABSOLUTE 0.02 K/mm3 (0.00-0.02); NRBC Auto 0.3 /100 WBC (0.0-0.2); Platelet Count 339 K/mm3 (150-400); RDW Coefficient Variation 18.1 % (11.7-14.2); RDW Standard Deviation 55.8 fL (35.1-46.3); Red Blood Cell Count 2.66 M/mm3 (4.30-5.90); White Blood Cell Count 6.43 K/mm3 (4.00-11.30)
[2021-07-17 11:10] LABS: Albumin, Blood 2.8 g/dL (3.4-5.0); Albumin/Globulin Ratio 0.8 (0.8-1.8); Bilirubin, Total 0.5 mg/dL (0.1-1.0); Bun/Creatinine Ratio 6.3 (12.0-20.0); Calcium, Blood 8.5 mg/dL (8.5-10.1); Creatinine, Blood 1.26 mg/dL (0.60-1.20); Globulin, Blood 3.7 g/dL (2.2-4.0); Percent Saturation 4.7 % (20.0-50.0); Potassium, Blood 3.7 mmol/L (3.5-5.5); Total Protein, Blood 6.5 g/dL (6.4-8.2)
[2021-07-17 13:18] LABS: Source, Urine Clean Catch
[2021-07-17 13:44] LABS: Appearance, Urine Clear (Clear); Bilirubin, Urine Neg (Neg); Blood, Urine Neg (Neg); Color, Urine Yellow (P-Yellow); Glucose Qualitative, Urine Neg (Neg); Ketones, Urine Neg (Neg); Leukocyte Esterase, Urine Neg (Neg); Nitrite, Urine Neg (Neg); Protein, Urine Neg (Neg); Urobilinogen, Urine NORM (Normal)
[~2021-07-20 00:29] MED LIST changes: -Deltasone 10 mg10 MG PO; +GAS X; +OXAYDO5 M1 PO; -XARELTO20 M1 PO
== END 2021-07-20 11:05 | disposition home or self-care (01) ==
LOC: ATC 00:29
PROVIDERS: Internal Medicine Hematology & Oncology
DX: C18.9 Malignant neoplasm of colon, unspecified (principal); C78.7 Secondary malignant neoplasm of liver and intrahepatic bile duct
CPT/HCPCS: 36415; 36430; 80053; 81003; 82378; 82728; 83540; 83550; 85025; 86850; 86900; 86901; 86923; 87086; J1642; J7050; P9016

== ENCOUNTER 2021-07-31 01:45 | Day surgery (SDC) | payer BC ==
[2021-07-30 09:37] LABS: BASOPHILS ABSOLUTE AUTO 0.04 K/mm3 (0.00-0.23); BASOPHILS PERCENT AUTO 1 % (0-2); EOSINOPHILS PERCENT AUTO 3 % (0-6); Hematocrit 21.3 % (37.0-53.0); Hemoglobin 6.2 g/dL (13.5-17.5); Mean Corpuscular HGB 25.8 pg (26.0-34.0); Mean Corpuscular HGB Conc 29.1 g/dL (31.5-36.5); Mean Corpuscular Volume 89 fL (80-100); Mean Platelet Volume 10.1 fL (9.1-12.4); Platelet Count 280 K/mm3 (150-400); RDW Coefficient Variation 18.6 % (11.7-14.2); RDW Standard Deviation 60.1 fL (35.1-46.3); White Blood Cell Count 2.97 K/mm3 (4.00-11.30)
[2021-07-30 09:53] LABS: Alanine Aminotransfer (ALT/SGP 15 U/L (12-78); Albumin, Blood 3.1 g/dL (3.4-5.0); Alk Phos 59 U/L (50-136); Anion Gap 6 mmol/L (6-16); Aspartate Aminotrans (AST/SGOT 9 U/L (12-37); Bilirubin, Total 0.2 mg/dL (0.1-1.0); Blood Urea Nitrogen 12 mg/dL (8-24); Bun/Creatinine Ratio 10.6 (12.0-20.0); CO2, Blood 29 mmol/L (21-32); Calcium, Blood 9.2 mg/dL (8.5-10.1); Chloride, Blood 107 mmol/L (98-108); Creatinine, Blood 1.13 mg/dL (0.60-1.20); Globulin, Blood 3.2 g/dL (2.2-4.0); Glomerular Filtration Rate >60 (60-); Glucose, Blood 106 mg/dL (70-99); Potassium, Blood 3.2 mmol/L (3.5-5.5); Sodium, Blood 142 mmol/L (136-145); Total Protein, Blood 6.3 g/dL (6.4-8.2)
[2021-07-30 10:02] LABS: IMMATURE GRAN ABSOLUTE AUTO 0.08 K/mm3 (0.00-0.10); IMMATURE GRAN PERCENT AUTO 3 % (0-1); LYMPHOCYTES ABSOLUTE AUTO 1.42 K/mm3 (0.84-5.20); LYMPHOCYTES PERCENT AUTO 48 % (21-46); MONOCYTES ABSOLUTE AUTO 0.14 K/mm3 (0.16-1.47); MONOCYTES PERCENT AUTO 5 % (4-13); NEUTROPHILS ABSOLUTE AUTO 1.19 K/mm3 (1.96-9.15); NEUTROPHILS PERCENT AUTO 40 % (41-73)
[2021-07-30 10:18] LABS: BASOPHILS ABSOLUTE MAN 0.02 K/mm3 (0.00-0.23); BASOPHILS PERCENT MAN 1 % (0-2); EOSINOPHILS ABSOLUTE MAN 0.05 K/mm3 (0.00-0.68); EOSINOPHILS PERCENT MAN 2 % (0-6); LYMPHOCYTES ABSOLUTE MAN 1.57 K/mm3 (0.84-5.20); LYMPHOCYTES PERCENT MAN 53 % (21-46); MONOCYTES ABSOLUTE MAN 0.08 K/mm3 (0.16-1.47); MONOCYTES PERCENT MAN 3 % (4-13); MYELOCYTE ABSOLUTE MAN 0.02 K/mm3 (0.00-0.00); MYELOCYTE PERCENT MAN 1 % (0-0); NEUTROPHILS ABSOLUTE MAN 1.18 K/mm3 (1.96-9.15); SEG NEUTROPHILS PERCENT MAN 40 % (41-73); TOTAL CELLS COUNTED 100
== END 2021-07-31 16:58 | disposition home or self-care (01) ==
LOC: ATC 01:45 → EDSTATUS 14:00 → ATC 16:58
PROVIDERS: Internal Medicine Hematology & Oncology
DX: C18.5 Malignant neoplasm of splenic flexure (principal); C78.7 Secondary malignant neoplasm of liver and intrahepatic bile duct; G47.33 Obstructive sleep apnea (adult) (pediatric); I82.409 Acute embolism and thrombosis of unspecified deep veins of unspecified lower extremity; Z79.01 Long term (current) use of anticoagulants
CPT/HCPCS: 36415; 36430; 80053; 82378; 85025; 86850; 86900; 86901; 86923; J1642; J7050; P9016

== ENCOUNTER 2021-08-07 15:15 | Inpatient (IN) | payer BC ==
[~2021-08-07] VITALS: Ht 177.8 cm; Wt 80.3 kg
[~2021-08-07 15:15] MED LIST changes: -Deltasone 10 mg10 MG PO; -XARELTO20 M1 PO
[2021-08-07 16:05] LABS: BASOPHILS ABSOLUTE AUTO 0.02 K/mm3 (0.00-0.23); BASOPHILS PERCENT AUTO 0 % (0-2); EOSINOPHILS PERCENT AUTO 0 % (0-6); Hematocrit 19.4 % (37.0-53.0); IMMATURE GRAN ABSOLUTE AUTO 0.07 K/mm3 (0.00-0.10); IMMATURE GRAN PERCENT AUTO 2 % (0-1); LYMPHOCYTES ABSOLUTE AUTO 0.68 K/mm3 (0.84-5.20); LYMPHOCYTES PERCENT AUTO 14 % (21-46); MONOCYTES PERCENT AUTO 2 % (4-13); Mean Corpuscular HGB 27.8 pg (26.0-34.0); Mean Corpuscular HGB Conc 29.9 g/dL (31.5-36.5); Mean Corpuscular Volume 93 fL (80-100); Mean Platelet Volume 10.2 fL (9.1-12.4); NEUTROPHILS ABSOLUTE AUTO 3.87 K/mm3 (1.96-9.15); NEUTROPHILS PERCENT AUTO 82 % (41-73); Platelet Count 242 K/mm3 (150-400); RDW Coefficient Variation 20.1 % (11.7-14.2); RDW Standard Deviation 67.4 fL (35.1-46.3); Red Blood Cell Count 2.09 M/mm3 (4.30-5.90); White Blood Cell Count 4.74 K/mm3 (4.00-11.30)
[2021-08-07 16:10] LABS: Hemoglobin 5.8 g/dL (13.5-17.5)
[2021-08-07 16:24] LABS: Alanine Aminotransfer (ALT/SGP 14 U/L (12-78); Albumin, Blood 3.1 g/dL (3.4-5.0); Albumin/Globulin Ratio 1.1 (0.8-1.8); Alk Phos 53 U/L (50-136); Anion Gap 8 mmol/L (6-16); Aspartate Aminotrans (AST/SGOT 12 U/L (12-37); Bilirubin, Total 0.2 mg/dL (0.1-1.0); Blood Urea Nitrogen 13 mg/dL (8-24); Bun/Creatinine Ratio 14.6 (12.0-20.0); CO2, Blood 24 mmol/L (21-32); Calcium, Blood 8.2 mg/dL (8.5-10.1); Chloride, Blood 108 mmol/L (98-108); Creatinine, Blood 0.89 mg/dL (0.60-1.20); Globulin, Blood 2.8 g/dL (2.2-4.0); Glomerular Filtration Rate >60 (60-); Glucose, Blood 138 mg/dL (70-99); Potassium, Blood 4.1 mmol/L (3.5-5.5); Sodium, Blood 140 mmol/L (136-145); Total Protein, Blood 5.9 g/dL (6.4-8.2)
[2021-08-07 16:59] LABS: SARS-Cov-2 (COVID-19) PCR, MMC NEGATIVE (NEGATIVE)
[2021-08-07] MEDS ORDERED: XARELTO20 M1 PO (17:02)
[2021-08-07] MEDS ORDERED: Deltasone 10 mg10 MG PO (17:03)
[2021-08-07] MEDS ORDERED: OMEP20ER PO (17:48)
[2021-08-08 02:29] LABS: BASOPHILS ABSOLUTE AUTO 0.01 K/mm3 (0.00-0.23); BASOPHILS PERCENT AUTO 0 % (0-2); EOSINOPHILS PERCENT AUTO 0 % (0-6); Hematocrit 22.4 % (37.0-53.0); Hemoglobin 6.9 g/dL (13.5-17.5); IMMATURE GRAN ABSOLUTE AUTO 0.02 K/mm3 (0.00-0.10); IMMATURE GRAN PERCENT AUTO 1 % (0-1); LYMPHOCYTES ABSOLUTE AUTO 0.79 K/mm3 (0.84-5.20); LYMPHOCYTES PERCENT AUTO 20 % (21-46); MONOCYTES ABSOLUTE AUTO 0.28 K/mm3 (0.16-1.47); MONOCYTES PERCENT AUTO 7 % (4-13); Mean Corpuscular HGB 27.7 pg (26.0-34.0); Mean Corpuscular HGB Conc 30.8 g/dL (31.5-36.5); Mean Corpuscular Volume 90 fL (80-100); Mean Platelet Volume 10.4 fL (9.1-12.4); NEUTROPHILS PERCENT AUTO 72 % (41-73); NRBC ABSOLUTE 0.02 K/mm3 (0.00-0.02); NRBC Auto 0.5 /100 WBC (0.0-0.2); Platelet Count 182 K/mm3 (150-400); RDW Coefficient Variation 17.5 % (11.7-14.2); RDW Standard Deviation 56.5 fL (35.1-46.3); Red Blood Cell Count 2.49 M/mm3 (4.30-5.90)
[2021-08-08 02:44] LABS: Anion Gap 5 mmol/L (6-16); Blood Urea Nitrogen 14 mg/dL (8-24); Bun/Creatinine Ratio 14.9 (12.0-20.0); CO2, Blood 25 mmol/L (21-32); Calcium, Blood 7.3 mg/dL (8.5-10.1); Chloride, Blood 109 mmol/L (98-108); Creatinine, Blood 0.94 mg/dL (0.60-1.20); Glomerular Filtration Rate >60 (60-); Glucose, Blood 116 mg/dL (70-99); Potassium, Blood 4.3 mmol/L (3.5-5.5); Sodium, Blood 139 mmol/L (136-145)
--- NOTE | 2021-08-08 06:18 | NUR ---
SHIFT SUMMARRY PATIENT ADMITTED FROM ER S/P GI. SECOND UNIT OF BLOOD TRANSFUSED WITH NO ISSUES. VITAL SIGNS REMAIN STABLE. PATIENT HAD CALM QUIET NIGHT. AWAITING LABS FROM THIS MORNING.
[2021-08-08 08:41] LABS: Hematocrit 22.7 % (37.0-53.0); Hemoglobin 7.2 g/dL (13.5-17.5)
[2021-08-08 17:16] LABS: BASOPHILS ABSOLUTE AUTO 0.01 K/mm3 (0.00-0.23); BASOPHILS PERCENT AUTO 0 % (0-2); EOSINOPHILS PERCENT AUTO 0 % (0-6); Hematocrit 22.5 % (37.0-53.0); Hemoglobin 6.8 g/dL (13.5-17.5); IMMATURE GRAN ABSOLUTE AUTO 0.02 K/mm3 (0.00-0.10); IMMATURE GRAN PERCENT AUTO 1 % (0-1); LYMPHOCYTES ABSOLUTE AUTO 0.83 K/mm3 (0.84-5.20); LYMPHOCYTES PERCENT AUTO 26 % (21-46); MONOCYTES PERCENT AUTO 15 % (4-13); Mean Corpuscular HGB 27.4 pg (26.0-34.0); Mean Corpuscular HGB Conc 30.2 g/dL (31.5-36.5); Mean Corpuscular Volume 91 fL (80-100); Mean Platelet Volume 10.4 fL (9.1-12.4); NEUTROPHILS ABSOLUTE AUTO 1.89 K/mm3 (1.96-9.15); NEUTROPHILS PERCENT AUTO 58 % (41-73); NRBC ABSOLUTE 0.02 K/mm3 (0.00-0.02); NRBC Auto 0.6 /100 WBC (0.0-0.2); Platelet Count 222 K/mm3 (150-400); RDW Coefficient Variation 17.8 % (11.7-14.2); RDW Standard Deviation 57.5 fL (35.1-46.3); Red Blood Cell Count 2.48 M/mm3 (4.30-5.90); White Blood Cell Count 3.25 K/mm3 (4.00-11.30)
[2021-08-08 18:18] LABS: Adenovirus F 40/41 Not Detected (NOT DETECT); Astrovirus Not Detected (NOT DETECT); Campylobacter Sp Not Detected (NOT DETECT); Cryptosporidium Not Detected (NOT DETECT); Cyclospora Cayetanensis Not Detected (NOT DETECT); E. Coli O157 Not Detected (NOT DETECT); Entamoeba Histolytica Not Detected (NOT DETECT); Enteroaggregative E. coli-EAEC Not Detected (NOT DETECT); Enteropathogenic E. coli-EPEC Not Detected (NOT DETECT); Enterotoxigenic E. coli-ETEC Not Detected (NOT DETECT); Giardia Lamblia Not Detected (NOT DETECT); Norovirus GI/GII Not Detected (NOT DETECT); Plesiomonas Shigelloides Not Detected (NOT DETECT); Rotavirus A Not Detected (NOT DETECT); Salmonella Sp Not Detected (NOT DETECT); Sapovirus Not Detected (NOT DETECT); Shiga Toxin-prod E. coli-STEC Not Detected (NOT DETECT); Shigella/Enteroin E. coli-EIEC Not Detected (NOT DETECT); Vibrio Cholerae Not Detected (NOT DETECT); Vibrio Sp Not Detected (NOT DETECT); Yersinia Enterocolitica Not Detected (NOT DETECT)
--- NOTE | 2021-08-09 04:41 | NUR ---
SHIFT SUMMARRY PATIENT REQUESTED PRN PAIN MED 5MG OXYCODONE FOR PAIN/TINGLING IN THE LEG. ADMINISTERED WITH GOOD EFFECTS. SLEPT THROUGH THE NIGHT WITH NO ACUTE MEDICAL ISSUES.
[2021-08-09 05:45] LABS: BASOPHILS ABSOLUTE AUTO 0.01 K/mm3 (0.00-0.23); BASOPHILS PERCENT AUTO 0 % (0-2); EOSINOPHILS ABSOLUTE AUTO 0.05 K/mm3 (0.00-0.68); EOSINOPHILS PERCENT AUTO 2 % (0-6); Hematocrit 22.2 % (37.0-53.0); Hemoglobin 6.8 g/dL (13.5-17.5); Mean Corpuscular HGB 27.9 pg (26.0-34.0); Mean Corpuscular HGB Conc 30.6 g/dL (31.5-36.5); Mean Corpuscular Volume 91 fL (80-100); Mean Platelet Volume 9.6 fL (9.1-12.4); NRBC ABSOLUTE 0.02 K/mm3 (0.00-0.02); NRBC Auto 0.6 /100 WBC (0.0-0.2); Platelet Count 237 K/mm3 (150-400); RDW Standard Deviation 58.5 fL (35.1-46.3); Red Blood Cell Count 2.44 M/mm3 (4.30-5.90); White Blood Cell Count 3.42 K/mm3 (4.00-11.30)
[2021-08-09 05:51] LABS: IMMATURE GRAN ABSOLUTE AUTO 0.01 K/mm3 (0.00-0.10); IMMATURE GRAN PERCENT AUTO 0 % (0-1); LYMPHOCYTES ABSOLUTE AUTO 1.14 K/mm3 (0.84-5.20); LYMPHOCYTES PERCENT AUTO 33 % (21-46); MONOCYTES ABSOLUTE AUTO 0.45 K/mm3 (0.16-1.47); MONOCYTES PERCENT AUTO 13 % (4-13); NEUTROPHILS ABSOLUTE AUTO 1.76 K/mm3 (1.96-9.15); NEUTROPHILS PERCENT AUTO 51 % (41-73)
[2021-08-09 13:46] LABS: Hematocrit 22.9 % (37.0-53.0); Hemoglobin 7.2 g/dL (13.5-17.5); Mean Corpuscular HGB 28.3 pg (26.0-34.0); Mean Corpuscular HGB Conc 31.4 g/dL (31.5-36.5); Mean Corpuscular Volume 90 fL (80-100); Mean Platelet Volume 9.3 fL (9.1-12.4); Platelet Count 208 K/mm3 (150-400); RDW Coefficient Variation 18.1 % (11.7-14.2); RDW Standard Deviation 57.7 fL (35.1-46.3); Red Blood Cell Count 2.54 M/mm3 (4.30-5.90); White Blood Cell Count 3.14 K/mm3 (4.00-11.30)
[2021-08-09 14:10] LABS: BAND PERCENT MAN 1 % (0-8); BASOPHILS ABSOLUTE MAN 0.03 K/mm3 (0.00-0.23); BASOPHILS PERCENT MAN 1 % (0-2); EOSINOPHILS ABSOLUTE MAN 0.03 K/mm3 (0.00-0.68); EOSINOPHILS PERCENT MAN 1 % (0-6); LYMPHOCYTES ABSOLUTE MAN 1.22 K/mm3 (0.84-5.20); LYMPHOCYTES PERCENT MAN 39 % (21-46); MONOCYTES ABSOLUTE MAN 0.28 K/mm3 (0.16-1.47); MONOCYTES PERCENT MAN 9 % (4-13); NEUTROPHILS ABSOLUTE MAN 1.57 K/mm3 (1.96-9.15); SEG NEUTROPHILS PERCENT MAN 49 % (41-73); TOTAL CELLS COUNTED 100
--- NOTE | 2021-08-09 16:38 | NUR ---
08/09/21- Pt admitted for GI bleed. Pt has history of colon cancer and is being followed by GI. He has recently restarted chemo therapy and is being treated for symptomatic anemia. Pt has been advised to follow up with both GI and oncology. -gianna
--- NOTE | 2021-08-09 18:43 | NUR ---
PT DISCHARGED HOME . PORT DEACCESSED. NO NEW MEDS. ARRIVED AND TAKEN HOME.
[2021-08-09 18:58] LABS: Hematocrit 28.6 % (37.0-53.0); Mean Corpuscular HGB 28.2 pg (26.0-34.0); Mean Corpuscular HGB Conc 31.5 g/dL (31.5-36.5); Mean Corpuscular Volume 90 fL (80-100); Mean Platelet Volume 10.3 fL (9.1-12.4); Platelet Count 240 K/mm3 (150-400); RDW Coefficient Variation 17.7 % (11.7-14.2); RDW Standard Deviation 57.1 fL (35.1-46.3); Red Blood Cell Count 3.19 M/mm3 (4.30-5.90); White Blood Cell Count 3.49 K/mm3 (4.00-11.30)
[2021-08-09 19:45] LABS: BAND PERCENT MAN 1 % (0-8); BASOPHILS ABSOLUTE MAN 0.03 K/mm3 (0.00-0.23); BASOPHILS PERCENT MAN 1 % (0-2); EOSINOPHILS ABSOLUTE MAN 0.13 K/mm3 (0.00-0.68); EOSINOPHILS PERCENT MAN 4 % (0-6); LYMPHOCYTES ABSOLUTE MAN 1.08 K/mm3 (0.84-5.20); LYMPHOCYTES PERCENT MAN 31 % (21-46); MONOCYTES PERCENT MAN 3 % (4-13); NEUTROPHILS ABSOLUTE MAN 2.12 K/mm3 (1.96-9.15); SEG NEUTROPHILS PERCENT MAN 60 % (41-73); TOTAL CELLS COUNTED 100
== END 2021-08-09 18:40 | disposition home or self-care (01) | DRG 812 ==
LOC: ER 15:15 → MEDS 17:43
PROVIDERS: Emergency Medicine Emergency Medical Services; Family Medicine; ADMIT Family Medicine
PROC: 30233N1 Transfusion of Nonautologous Red Blood Cells into Peripheral Vein, Percutaneous Approach (ICD-10-PCS; principal; 2021-08-07)
DX: D62 Acute posthemorrhagic anemia (principal); K62.5 Hemorrhage of anus and rectum; I82.402 Acute embolism and thrombosis of unspecified deep veins of left lower extremity; C18.9 Malignant neoplasm of colon, unspecified; C78.7 Secondary malignant neoplasm of liver and intrahepatic bile duct; C78.00 Secondary malignant neoplasm of unspecified lung; C78.89 Secondary malignant neoplasm of other digestive organs; Z20.822 Contact with and (suspected) exposure to COVID-19; R19.7 Diarrhea, unspecified; K21.9 Gastro-esophageal reflux disease without esophagitis; Z79.899 Other long term (current) drug therapy; Z79.01 Long term (current) use of anticoagulants; Z79.52 Long term (current) use of systemic steroids
CPT/HCPCS: 0097U; 36415; 36430; 78278; 80048; 80053; 85014; 85018; 85025; 86850; 86900; 86901; 86923; 96374-59; 99285-25; A9270; A9560; C9113; J1642; J7030; J7040; P9016; U0004

== ENCOUNTER → 2021-08-07 | Outpatient (CLI) | payer BC ==
[~2021-08-07] MED LIST changes: +Deltasone 10 mg10 MG PO; +XARELTO20 M1 PO
[2021-08-07 13:30] LABS: Hematocrit 19.3 % (37.0-53.0); Mean Corpuscular HGB 27.2 pg (26.0-34.0); Mean Corpuscular Volume 94 fL (80-100); Mean Platelet Volume 10.4 fL (9.1-12.4); Platelet Count 215 K/mm3 (150-400); RDW Coefficient Variation 20.1 % (11.7-14.2); RDW Standard Deviation 67.3 fL (35.1-46.3); Red Blood Cell Count 2.06 M/mm3 (4.30-5.90); White Blood Cell Count 4.31 K/mm3 (4.00-11.30)
[2021-08-07 13:38] LABS: Hemoglobin 5.6 g/dL (13.5-17.5)
== END | disposition home or self-care (01) ==
LOC: LAB 13:18 → LAB SHORT 13:18
PROVIDERS: Internal Medicine Hematology & Oncology
DX: C18.9 Malignant neoplasm of colon, unspecified (principal); C78.7 Secondary malignant neoplasm of liver and intrahepatic bile duct
CPT/HCPCS: 85027

== ENCOUNTER → 2021-08-23 | Outpatient (CLI) | payer BC ==
[~2021-08-23] MED LIST changes: +Deltasone 10 mg10 MG PO; +XARELTO20 M1 PO
[2021-08-23 12:42] LABS: Hematocrit 26.9 % (37.0-53.0); Mean Corpuscular HGB 27.9 pg (26.0-34.0); Mean Corpuscular HGB Conc 29.7 g/dL (31.5-36.5); Mean Corpuscular Volume 94 fL (80-100); Mean Platelet Volume 9.6 fL (9.1-12.4); Platelet Count 357 K/mm3 (150-400); RDW Coefficient Variation 18.4 % (11.7-14.2); RDW Standard Deviation 61.1 fL (35.1-46.3); Red Blood Cell Count 2.87 M/mm3 (4.30-5.90); White Blood Cell Count 6.96 K/mm3 (4.00-11.30)
== END | disposition home or self-care (01) ==
LOC: LAB SHORT 12:01 → LAB 12:01
PROVIDERS: Internal Medicine Hematology & Oncology
DX: C18.5 Malignant neoplasm of splenic flexure (principal)
CPT/HCPCS: 85027

== ENCOUNTER 2021-10-04 10:24 | Day surgery (SDC) | payer BC ==
[2021-10-03 09:11] LABS: BASOPHILS ABSOLUTE AUTO 0.08 K/mm3 (0.00-0.23); BASOPHILS PERCENT AUTO 1 % (0-2); EOSINOPHILS ABSOLUTE AUTO 0.14 K/mm3 (0.00-0.68); EOSINOPHILS PERCENT AUTO 1 % (0-6); Hematocrit 23.8 % (37.0-53.0); Hemoglobin 6.7 g/dL (13.5-17.5); IMMATURE GRAN PERCENT AUTO 6 % (0-1); LYMPHOCYTES ABSOLUTE AUTO 1.35 K/mm3 (0.84-5.20); LYMPHOCYTES PERCENT AUTO 13 % (21-46); MONOCYTES ABSOLUTE AUTO 0.73 K/mm3 (0.16-1.47); MONOCYTES PERCENT AUTO 7 % (4-13); Mean Corpuscular HGB 26.7 pg (26.0-34.0); Mean Corpuscular HGB Conc 28.2 g/dL (31.5-36.5); Mean Corpuscular Volume 95 fL (80-100); Mean Platelet Volume 10.3 fL (9.1-12.4); NEUTROPHILS PERCENT AUTO 72 % (41-73); NRBC ABSOLUTE 0.24 K/mm3 (0.00-0.02); NRBC Auto 2.3 /100 WBC (0.0-0.2); Platelet Count 322 K/mm3 (150-400); RDW Coefficient Variation 19.9 % (11.7-14.2); RDW Standard Deviation 67.1 fL (35.1-46.3); Red Blood Cell Count 2.51 M/mm3 (4.30-5.90)
[2021-10-03 10:19] LABS: Alanine Aminotransfer (ALT/SGP 21 U/L (12-78); Albumin, Blood 2.9 g/dL (3.4-5.0); Albumin/Globulin Ratio 0.8 (0.8-1.8); Alk Phos 89 U/L (50-136); Anion Gap 7 mmol/L (6-16); Aspartate Aminotrans (AST/SGOT 18 U/L (12-37); Bilirubin, Total 0.7 mg/dL (0.1-1.0); Blood Urea Nitrogen 11 mg/dL (8-24); Bun/Creatinine Ratio 9.8 (12.0-20.0); CO2, Blood 29 mmol/L (21-32); Calcium, Blood 8.7 mg/dL (8.5-10.1); Chloride, Blood 103 mmol/L (98-108); Creatinine, Blood 1.12 mg/dL (0.60-1.20); Globulin, Blood 3.8 g/dL (2.2-4.0); Glomerular Filtration Rate >60 (60-); Glucose, Blood 146 mg/dL (70-99); Potassium, Blood 3.7 mmol/L (3.5-5.5); Sodium, Blood 139 mmol/L (136-145); Total Protein, Blood 6.7 g/dL (6.4-8.2)
== END 2021-10-04 15:42 | disposition home or self-care (01) ==
LOC: ATC 10:24 → EDSTATUS 13:30 → ATC 13:30
PROVIDERS: Internal Medicine Hematology & Oncology
DX: C18.5 Malignant neoplasm of splenic flexure (principal); C78.7 Secondary malignant neoplasm of liver and intrahepatic bile duct; K21.9 Gastro-esophageal reflux disease without esophagitis; D50.9 Iron deficiency anemia, unspecified; G62.9 Polyneuropathy, unspecified; Z86.718 Personal history of other venous thrombosis and embolism; Z90.49 Acquired absence of other specified parts of digestive tract; Z79.52 Long term (current) use of systemic steroids; Z79.899 Other long term (current) drug therapy; Z79.01 Long term (current) use of anticoagulants
CPT/HCPCS: 36415; 36430; 80053; 82378; 85025; 86850; 86900; 86901; 86923; J1642; J7050; P9016

== ENCOUNTER 2021-11-19 08:59 | Day surgery (SDC) | payer BC | END 2021-11-19 22:46 | disposition home or self-care (01) | LOC: WOUND 08:59 | DX: C77.2 Secondary and unspecified malignant neoplasm of intra-abdominal lymph nodes (principal); G89.3 Neoplasm related pain (acute) (chronic) | CPT/HCPCS: G0463 ==

== ENCOUNTER 2023-07-25 11:07 | Emergency (ER) | payer MEDICARE ==
[~2023-07-25] VITALS: Ht 177.8 cm; Wt 74.4 kg
[~2023-07-25 11:07] MED LIST changes: +LONSURF 20 MG-1 EAC1 PO; +NEOM500 PO; +XARELTO2.5 M1 PO
[2023-07-25 11:46] LABS: BASOPHILS ABSOLUTE AUTO 0.02 K/mm3 (0.00-0.23); BASOPHILS PERCENT AUTO 0 % (0-2); EOSINOPHILS ABSOLUTE AUTO 0.06 K/mm3 (0.00-0.68); EOSINOPHILS PERCENT AUTO 1 % (0-6); Hematocrit 29.9 % (37.0-53.0); IMMATURE GRAN ABSOLUTE AUTO 0.05 K/mm3 (0.00-0.10); IMMATURE GRAN PERCENT AUTO 1 % (0-1); LYMPHOCYTES ABSOLUTE AUTO 0.49 K/mm3 (0.84-5.20); LYMPHOCYTES PERCENT AUTO 5 % (21-46); MONOCYTES ABSOLUTE AUTO 0.92 K/mm3 (0.16-1.47); MONOCYTES PERCENT AUTO 10 % (4-13); Mean Corpuscular HGB 26.9 pg (26.0-34.0); Mean Corpuscular HGB Conc 30.1 g/dL (31.5-36.5); Mean Corpuscular Volume 89 fL (80-100); Mean Platelet Volume 10.7 fL (9.1-12.4); NEUTROPHILS ABSOLUTE AUTO 8.19 K/mm3 (1.96-9.15); NEUTROPHILS PERCENT AUTO 84 % (41-73); Platelet Count 328 K/mm3 (150-400); RDW Coefficient Variation 17.3 % (11.7-14.2); RDW Standard Deviation 56.5 fL (35.1-46.3); Red Blood Cell Count 3.35 M/mm3 (4.30-5.90); White Blood Cell Count 9.73 K/mm3 (4.00-11.30)
[2023-07-25 12:08] LABS: BASOPHILS PERCENT MAN 0 % (0-2); EOSINOPHILS ABSOLUTE MAN 0.09 K/mm3 (0.00-0.68); EOSINOPHILS PERCENT MAN 1 % (0-6); LYMPHOCYTES ABSOLUTE MAN 0.38 K/mm3 (0.84-5.20); LYMPHOCYTES PERCENT MAN 4 % (21-46); MONOCYTES ABSOLUTE MAN 0.58 K/mm3 (0.16-1.47); MONOCYTES PERCENT MAN 6 % (4-13); NEUTROPHILS ABSOLUTE MAN 8.65 K/mm3 (1.96-9.15); SEG NEUTROPHILS PERCENT MAN 89 % (41-73); TOTAL CELLS COUNTED 100
[2023-07-25 12:16] LABS: Albumin, Blood 2.5 g/dL (3.4-5.0); Albumin/Globulin Ratio 0.5 (0.8-1.8); Bilirubin, Total 0.5 mg/dL (0.1-1.0); Bun/Creatinine Ratio 7.4 (12.0-20.0); Calcium, Blood 9.6 mg/dL (8.5-10.1); Creatinine, Blood 0.81 mg/dL (0.60-1.20); Globulin, Blood 4.6 g/dL (2.2-4.0); Potassium, Blood 3.4 mmol/L (3.5-5.5); Total Protein, Blood 7.1 g/dL (6.4-8.2)
[2023-07-25] MEDS ORDERED: SYNTHROID150 MC1 PO (13:39)
[2023-07-25] MEDS ORDERED: OXYC10TA19 PO (13:40)
[2023-07-25] MEDS ORDERED: FENTANYL1 EA12 TOP (13:40)
[2023-07-25] MEDS ORDERED: ONDA4 PO (13:41)
[2023-07-25] MEDS ORDERED: METO10 PO (13:42)
[2023-07-25] MEDS ORDERED: ALPR.5 PO (13:43)
[2023-07-25] MEDS ORDERED: IRON18 MG PO (13:43)
[2023-07-25] MEDS ORDERED: XARELTO20 MG PO (13:44)
[2023-07-25 15:09] LABS: Source, Urine Clean Catch
[2023-07-25 15:18] LABS: Appearance, Urine Clear (Clear); Bilirubin, Urine Neg (Neg); Blood, Urine 1+ (Neg); Color, Urine Yellow (P-Yellow); Glucose Qualitative, Urine Neg (Neg); Ketones, Urine Neg (Neg); Leukocyte Esterase, Urine Neg (Neg); Nitrite, Urine Neg (Neg); Protein, Urine 2+ (Neg); Urobilinogen, Urine NORM (Normal); pH, Urine 6.5 (5.0-8.0)
[2023-07-25 15:32] LABS: Red Blood Cells, Urine 0-2 /hpf (0-2); White Blood Cells, Urine 0-2 /hpf (0-5)
[2023-07-25 15:33] LABS: Bacteria Rare /hpf; Squamous Epithelial Cells Not Seen /hpf (Few)
[2023-07-25 16:29] VITALS: BP 105/56
== END 2023-07-25 18:48 | disposition home or self-care (01) ==
LOC: ER 11:07
PROVIDERS: Emergency Medicine; Physician Assistant
DX: N20.1 Calculus of ureter (principal)
CPT/HCPCS: 74177; 80053; 81001; 83690; 85025; 96361; 96374-59; 96375; 99284-25; J1170; J1885; J2405; J7030; Q9967

== ENCOUNTER 2023-08-19 06:39 | Emergency (ER) | payer MEDICARE ==
[~2023-08-19] VITALS: Ht 172.7 cm; Wt 77.1 kg
[~2023-08-19 06:39] MED LIST changes: +FENTANYL1 EA12 TOP; +IRON18 MG PO; +METO10 PO; +ONDA4 PO; +OXYC10TA19 PO; +SYNTHROID150 MC1 PO; +XARELTO20 MG PO
[2023-08-19 06:48] VITALS: BP 149/93
[2023-08-19 07:58] LABS: BASOPHILS ABSOLUTE AUTO 0.04 K/mm3 (0.00-0.23); BASOPHILS PERCENT AUTO 0 % (0-2); EOSINOPHILS ABSOLUTE AUTO 0.05 K/mm3 (0.00-0.68); EOSINOPHILS PERCENT AUTO 0 % (0-6); Hematocrit 32.3 % (37.0-53.0); Hemoglobin 9.7 g/dL (13.5-17.5); IMMATURE GRAN ABSOLUTE AUTO 0.12 K/mm3 (0.00-0.10); IMMATURE GRAN PERCENT AUTO 1 % (0-1); LYMPHOCYTES ABSOLUTE AUTO 0.62 K/mm3 (0.84-5.20); LYMPHOCYTES PERCENT AUTO 4 % (21-46); MONOCYTES ABSOLUTE AUTO 1.49 K/mm3 (0.16-1.47); MONOCYTES PERCENT AUTO 11 % (4-13); Mean Corpuscular HGB 27.8 pg (26.0-34.0); Mean Corpuscular Volume 93 fL (80-100); Mean Platelet Volume 11.8 fL (9.1-12.4); NEUTROPHILS ABSOLUTE AUTO 11.63 K/mm3 (1.96-9.15); NEUTROPHILS PERCENT AUTO 83 % (41-73); Platelet Count 413 K/mm3 (150-400); RDW Coefficient Variation 19.2 % (11.7-14.2); Red Blood Cell Count 3.49 M/mm3 (4.30-5.90); White Blood Cell Count 13.95 K/mm3 (4.00-11.30)
[2023-08-19 08:06] LABS: Albumin, Blood 2.5 g/dL (3.4-5.0); Albumin/Globulin Ratio 0.6 (0.8-1.8); Bilirubin, Total 0.5 mg/dL (0.1-1.0); Bun/Creatinine Ratio 9.2 (12.0-20.0); Calcium, Blood 9.3 mg/dL (8.5-10.1); Creatinine, Blood 0.76 mg/dL (0.60-1.20); Globulin, Blood 4.4 g/dL (2.2-4.0); Potassium, Blood 4.1 mmol/L (3.5-5.5); Total Protein, Blood 6.9 g/dL (6.4-8.2)
[2023-08-19 08:52] LABS: Source, Urine Clean Catch
[2023-08-19 09:06] LABS: Appearance, Urine Clear (Clear); Bilirubin, Urine Neg (Neg); Blood, Urine 1+ (Neg); Color, Urine Yellow (P-Yellow); Glucose Qualitative, Urine Neg (Neg); Ketones, Urine Neg (Neg); Leukocyte Esterase, Urine 1+ (Neg); Nitrite, Urine Neg (Neg); Protein, Urine 3+ (Neg); Specific Gravity, Urine 1.015 (1.003-1.022); Urobilinogen, Urine NORM (Normal)
[2023-08-19 09:40] LABS: Hyaline Casts 25-50 /lpf (0-2)
[2023-08-19 09:41] LABS: Calcium Oxalate Crystals Mod /hpf
[2023-08-19 09:43] LABS: Red Blood Cells, Urine 0-2 /hpf (0-2)
[2023-08-19 09:44] LABS: Squamous Epithelial Cells Not Seen /hpf (Few)
[2023-08-19 09:46] LABS: Bacteria Few /hpf; Mucus Mod (0-Heavy)
== END 2023-08-19 10:37 | disposition home or self-care (01) ==
LOC: ER 06:39
PROVIDERS: Student in an Organized Health Care Education/Training Program
DX: R10.9 Unspecified abdominal pain (principal); D72.829 Elevated white blood cell count, unspecified; C18.9 Malignant neoplasm of colon, unspecified; C78.00 Secondary malignant neoplasm of unspecified lung; C78.7 Secondary malignant neoplasm of liver and intrahepatic bile duct; C78.89 Secondary malignant neoplasm of other digestive organs; Z79.899 Other long term (current) drug therapy
CPT/HCPCS: 74177; 80053; 81001; 83690; 85025; 87086; 93005; 93010; 96361; 96374-59; 96375-59; 99284-25; J1170; J1885; J2405; J7030; Q9967